=== PATIENT | male | born 1975 | race Caucasian/White ===

== ENCOUNTER 2023-12-15 23:40 | Emergency (ER) | payer SELFPAY ==
--- NOTE | ~2023-12-15 | US_ITS ---
EXAMINATION: US scrotum doppler DATE: 12/16/2023 01:35 INDICATION: Right testicular pain and swelling. TECHNIQUE: Grayscale and Doppler ultrasound images of the testes were obtained. COMPARISON: CT abdomen and pelvis 12/16/2023 FINDINGS: The right testis measures 5.3 x 3.4 x 3.6 cm. The left testis measures 5.2 x 2.4 x 3.8 cm. There is normal vascular flow to both testes. The right epididymis is enlarged with increased vascula rity, consistent with epididymitis. The left epididymis is normal with normal vascular flow. There is a moderate-sized right hydrocele. IMPRESSION: 1. Right-sided epididymitis. 2. Moderate-sized right hydrocele. Reviewed, dictated and finalized at location E.
--- NOTE | ~2023-12-15 | CT_ITS ---
EXAMINATION: CT abdomen pelvis w con DATE: 12/16/2023 02:05 INDICATION: Right lower quadrant abdominal pain. TECHNIQUE: Computed tomography (CT) of the abdomen and pelvis was performed with 100 mL Omnipaque 350 intravenous contrast. Automated exposure control and iterative reconstruction technique were employe d. The dose-length product was 258.36 mGy-cm. COMPARISON: CT abdomen and pelvis 06/22/2016 FINDINGS: The visualized portions of the lung bases demonstrate mild atelectasis. A calcified right l karol nodule is consistent with old granulomatous disease. No pleural effusion. The heart size is alpesh l. No pericardial effusion. The liver is normal. The gallbladder is contracted. The spleen demonstrat es a 5 mm cyst. The pancreas and adrenal glands are normal. There are cysts in the kidneys measuring up to 19 mm on the left. There are no dilated loops of bowel. The appendix is not visualized. There a re no pathologically enlarged lymph nodes. There is no free intraperitoneal fluid. There is a right-s ided hydrocele. There is lumbar dextroscoliosis and severe spondylosis. IMPRESSION: 1. Right-sided hydrocele. Reviewed, dictated and finalized at location E. IMPRESSION: 1. Right-sided hydrocele.
[2023-12-15 23:47] VITALS: BP 110/73; PULSE 103; RESP 15; TEMP 36.7; O2SAT 98
[2023-12-16 00:32] VITALS: BP 112/68; PULSE 67; RESP 18; O2SAT 99
[2023-12-16 00:56] LABS: Basophils Absolute Auto 0.1 K/mm3 (0.0-0.1); Basophils Percent Auto 0.5 % (0.2-1.2); Eosinophils Absolute Auto 0.2 K/mm3 (0-0.3); Eosinophils Percent Auto 1.4 % (0-4.4); Hematocrit 37.3 % (42.0-52.0); Hemoglobin 12.3 g/dL (14.0-18.0); Immature Granulocyte Absolute 0.04 K/mm3 (0.00-0.031); Immature Granulocyte Percent A 0.4 % (0-0.5); Lymphocytes Absolute Auto 2.44 K/mm3 (0.9-3.2); Lymphocytes Percent Auto 21.7 % (18.3-44.2); Mean Corpuscular Hemoglobin 29.9 pg (26-34); Mean Corpuscular Volume 90.8 fl (80-100); Mean Platelet Volume 9.5 fl (7.4-10.4); Monocytes Percent Auto 8.8 % (2.6-8.5); Neutrophils Absolute Auto 7.5 K/mm3 (1.3-6.7); Neutrophils Percent Auto 67.2 % (45.5-73.1); Platelet Count Result 205 k/mm3 (150-375); Red Blood Count 4.11 M/mm3 (4.6-6.20); White Blood Count 11.2 K/mm3 (4.5-10.0)
[2023-12-16 01:07] LABS: Alanine Aminotransferase 11 U/L (6-50); Alkaline Phosphatase 40 U/L (38-126); Anion Gap 7 mmol/L (4-12); Aspartate Amino Transferase 21 U/L (17-59); Bilirubin,Total 0.2 mg/dL (0.2-1.3); Blood Urea Nitrogen 14 mg/dL (9-20); Calcium 8.9 mg/dL (8.4-10.2); Carbon Dioxide 31 mmol/L (22-30); Chloride 103 mmol/L (98-107); Estimated CRCL calculation 91 ml/min; Estimated Glomerular Filt Rate > 60; Glucose 123 mg/dL (65-110); Lipase 548 U/L (23-300); Sodium 141 mmol/L (137-145)
--- NOTE | 2023-12-16 01:52 | PC.NURSE ---
Patient upset that he has to wear blood pressure cuff and states I cannot relax when this thing goes off . Patient was educated that while in the ED a blood pressure is a vital that we monitor while patients are here. Patient replies My blood pressure is fine .
[2023-12-16 01:53] VITALS: BP 108/64; PULSE 91; RESP 16; O2SAT 100
--- NOTE | 2023-12-16 02:18 | ED.GENADULT ---
HPI - General Adult General Chief complaint: Urogenital-Male Stated complaint: R testicle swelling Time Seen by Provider: 12/16/23 00:36 History of Present Illness HPI narrative: patient is a 48-year-old gentleman presents emergency department chief complaint of right testicle pain and swelling patient reports the pain started after he was lifting some carpet and believes that he may have had an injury the patient reports right testicle is swollen and tender the patient also reports the pain shoots up into his right lower quadrant Related Data Allergies Allergy/AdvReac Type Severity Reaction Status Date / Time codeine Allergy Unknown Dyspnea / Verified 12/15/23 23:47 SOB Review of Systems Review of Systems: A 10 system review of systems was completed on the patient and is negative except for what is stated in the HPI. Nursing and ancillary documentation was reviewed. Exam Narrative: GENERAL: Well-appearing, well-nourished, and in no acute distress. HEAD: Normocephalic, atraumatic. EYES: PERRLA and EOMI. ENT: Nares clear, no rhinorrhea or epistaxis. Mucous membranes moist. NECK: Supple. CHEST: Clear to auscultation. No respiratory distress. HEART: Regular rate and rhythm. No murmur heard. Normal peripheral pulses. ABDOMEN: Soft, nontender, nondistended, normal active bowel sounds. : Right testicle is swollen and tender on the posterior aspect EXTREMITIES: Normal range of motion. No edema. SKIN: Warm, dry, no rash. NEURO: No focal deficits. Alert and oriented x3. PSYCH: Normal mood and affect. Course Vital Signs Vital signs: Vital Signs Temperature 36.7 C 12/15/23 23:47 Pulse Rate 103 H 12/15/23 23:47 Respiratory Rate 15 12/15/23 23:47 Blood Pressure 110/73 12/15/23 23:47 Pulse Oximetry 98 12/15/23 23:47 Oxygen Delivery Room Air 12/15/23 23:47 Temperature 36.7 C 12/15/23 23:47 Pulse Rate 87 12/16/23 03:07 Respiratory Rate 16 12/16/23 03:07 Blood Pressure 105/60 12/16/23 03:07 Pulse Oximetry 100 12/16/23 03:07 Oxygen Delivery Room Air 12/15/23 23:47 Medical Decision Making MDM Narrative Medical decision making narrative: differential diagnosis includes testicular torsion, hydrocele, variceal, epididymitis, orchitis epididymal orchitis laboratory studies were obtained on the patient which showed a urinalysis with greater than 100 white blood cells in urine CBC showed a white count of 11.2 hemoglobin was 12.3 electrolytes showed no acute abnormalities lipase was slightly elevated at 548 a ultrasound of the scrotum showed no evidence of torsion there is enlargement and vascularity of the right epididymis consistent with epididymitis there is also a hydrocele on the right CT scan of the abdomen pelvis showed no acute abnormality patient was given a dose of Rocephin will be started on doxycycline and Keflex a chlamydia gonorrhea test has been sent Vital Signs Vital Signs: Vital Signs Temperature 36.7 C 12/15/23 23:47 Pulse Rate 103 H 12/15/23 23:47 Respiratory Rate 15 12/15/23 23:47 Blood Pressure 110/73 12/15/23 23:47 Pulse Oximetry 98 12/15/23 23:47 Oxygen Delivery Room Air 12/15/23 23:47 Temperature 36.7 C 12/15/23 23:47 Pulse Rate 87 12/16/23 03:07 Respiratory Rate 16 12/16/23 03:07 Blood Pressure 105/60 12/16/23 03:07 Pulse Oximetry 100 12/16/23 03:07 Oxygen Delivery Room Air 12/15/23 23:47 Lab Data 12/16/23 00:46 12/16/23 00:46 Labs: Lab Results 12/16/23 12/16/23 Range/Units 00:46 03:25 WBC 11.2 H (4.5-10.0) K/mm3 RBC 4.11 L (4.6-6.20) M/mm3 Hgb 12.3 L (14.0-18.0) g/dL Hct 37.3 L (42.0-52.0) % MCV 90.8 (80-100) fl MCH 29.9 (26-34) pg MCHC 33.0 (32-36) g/dl RDW 13.0 (11.5-14.5) % Plt Count 205 (150-375) k/mm3 MPV 9.5 (7.4-10.4) fl Immature Gran % (Auto) 0.4 (0-0.5) % Neut % (Auto) 67.2 (45.5
[2023-12-16 03:07] VITALS: BP 105/60; PULSE 87; RESP 16; O2SAT 100
--- NOTE | 2023-12-16 03:10 | PC.NURSE ---
Patient stated to tech when offered a straight catheter for urine that I'll go home before that happens.
[2023-12-16 03:37] LABS: Appearance Urine Cloudy (Clear); Bilirubin Urine Negative (Negative); Blood Urine Trace (Negative); Color Urine Yellow (Yellow); Glucose Urine UA Negative (Negative); Ketones Urine Negative (Negative); Leukocyte Esterase Ur 1+ LEU/UL (Negative); Nitrate Urine Negative (Negative); Non Pathogenic Casts 0-2; Protein Urine Trace mg/dL (Negative); Squamous Epithelial Cell Urine None Seen /hpf (Few); WBC Urine >100 /hpf (0-3); pH Urine 5.5 (5.0-9.0)
[2023-12-16 03:45] LABS: Bacteria Urine Trace /hpf; Specific Grav Ur 1.079 (1.001-1.035)
[2023-12-16 03:46] LABS: Add Urine Microscopic? YES
[2023-12-16] MEDS: cefTRIAXone 1 GM VIAL IM (04:34)
[2023-12-16 08:11] LABS: Chlamydia trachomatis NOT DETECTED (NOT DETECTE); Neisseria gonorrhoeae PCR NOT DETECTED (NOT DETECTE)
== END 2023-12-16 04:39 | disposition home or self-care (01) ==
PROVIDERS: Emergency Provider Emergency Medicine
DX: N45.1 Epididymitis (principal); N39.0 Urinary tract infection, site not specified; N43.3 Hydrocele, unspecified
CPT/HCPCS: 36415; 74177; 76870; 80053; 81001; 83690; 85025; 87086; 87491; 87591; 93976; 96372; 99284; J0696; Q9967